=== PATIENT | female | born 2000 | race Caucasian/White ===

== ENCOUNTER 2024-03-04 20:05 | Emergency (ER) | payer OTHER, SELFPAY ==
[2024-03-04 20:07] VITALS: BP 160/108
[2024-03-04 20:19] LABS: % Basophils 0.2 % (0-2); % Eosinophils 0.3 % (0-6); % Immature Granulocytes 0.6 % (0-0.5); % Lymphocytes 25.6 % (20.5-51.1); % Monocytes 4.1 % (1.7-9.3); % Neutrophils 69.2 % (42.2-75.2); Absolute Lymphocytes 1.7 10^3/uL (1.2-3.4); Absolute Monocytes 0.3 10^3/uL (0.1-0.6); Absolute Neutrophils 4.6 10^3/uL (1.4-6.5); Hematocrit 43.5 % (37.0-47.0); Hemoglobin 14.7 g/dL (12.0-16.0); Mean Corp Hgb Conc. 33.8 g/dL (33.0-37.0); Mean Corpuscular Hgb 28.9 pg (27.0-31.0); Mean Corpuscular Volume 85.6 fL (81.0-99.0); Mean Platelet Volume 9.7 fL (7.4-10.4); Nucleated Red Blood Cells % 0 %; Platelet Count 245 10^3/uL (130-400); Red Blood Cell Count 5.08 10^6/uL (4.20-5.40); Red Cell Dist. Width 12.3 % (11.5-14.5); White Blood Cell Count 6.6 10^3/uL (4.8-10.8)
[2024-03-04 20:35] LABS: ALT (SGPT) 20 U/L (0-35); AST (SGOT) 29 U/L (14-36); Albumin 4.7 g/dl (3.5-5.0); Alkaline Phosphatase 72 U/L (38-126); Blood Urea Nitrogen 16 mg/dl (7-17); Calcium 9.7 mg/dl (8.4-10.2); Carbon Dioxide 25 mmol/L (22-30); Chloride 102 mmol/L (98-107); Glucose 142 mg/dl (70-99); Lipase 58 U/L (23-300); Potassium 4.4 mmol/L (3.5-5.1); Sodium 137 mmol/L (135-145); Total Bilirubin 0.7 mg/dl (0.2-1.3); Total Protein 7.5 g/dl (6.3-8.2); eGFR > 60.00
[2024-03-04 22:29] VITALS: BMI 26.4
[2024-03-04 22:34] VITALS: BP 112/85
--- NOTE | 2024-03-04 22:57 | ED.GENMED ---
History of Present Illness
General
Chief Complaint: Abdominal Pain
Source: patient
Time Seen by Provider: 03/04/24 22:23
History of Present Illness
History of Present Illness:
23-year-old female presents to the emergency room complaining of epigastric pain. Patient states about 5 PM she had a sudden onset of severe epigastric pain. It made her double over. She had some associated nausea. Pain did not radiate to the
back. It is mostly gone now though not completely. She denies any fever, chills, diarrhea or constipation. Last menstrual period was just a day or 2 ago. She denies any previous abdominal surgeries. She does take control. She has never
been .
Phy Exam
Physical Exam
Physical Exam:
General: Awake, Alert, Oriented X3. No acute distress.
Vitals: unremarkable
Head: Atraumatic
Eyes: Pupils equal, EOMI
Throat: Airway intact, no exudates
Neck: Trachea midline
Lungs: Clear and equal b/l
Heart: Regular rate, no murmurs
Abd: Soft, Nontender, No pulsatile mass
Neuro: Nonfocal
Skin: Warm, dry, no rash
Extremities: pulses equal b/l, no edema
Course
Orders/Labs/Results
Orders:
Orders
03/04/24 20:13
Complete Blood Count/With Diff Urgent
Comprehensive Metabolic Panel Urgent
Lactic Acid Urgent
Lipase Urgent
03/04/24 22:56
US Abdomen Complete/Upper Urgent
Comment:
Reason For Exam: epigastric pain
Abnormal Lab Results
03/04/24
20:13
Immature Gran % 0.6 H %
(0-0.5)
Glucose 142 H mg/dl
(70-99)
03/04/24 20:13
03/04/24 20:13
Vital Signs
Initial and Last Documented VS:
Initial Vital Signs
Temp Pulse Resp BP Pulse Ox
97.9 F 71 20 160/108 99
03/04/24 20:07 03/04/24 20:07 03/04/24 20:07 03/04/24 20:07 03/04/24 20:07
Last Documented Vital Signs
Temp Pulse Resp BP Pulse Ox
97.9 F 71 20 106/74 98
03/04/24 20:07 03/04/24 20:07 03/04/24 20:07 03/04/24 23:00 03/04/24 23:30
MDM/Problems Addressed
Differential Diagnosis Includes:
Pancreatitis, acute cholecystitis, biliary colic, gastroenteritis
MDM/Problems Addressed:
Patient has significant abdominal pain which has mostly resolved at the time my evaluation. Labs are reassuring. Ultrasound does not show any obvious stones or gallbladder wall thickening. However the overall presentation seems consistent with
biliary colic. Patient stable for discharge home recommend she follow-up with general surgery as an outpatient. Given contact information for Dr. Richards. Recommend low-fat diet.
*Radiology
Radiology exam reviewed: radiology read reviewed
*Pulse Oximetry
Patient hypoxic: no
*Critical Care Note
Total Time (30-74mins, 75-104mins- exclusive of procedures): Not Applicable
ED Attending Note
-
Portions of this chart may have been created with voice recognition software.� Occasional wrong word or��sound alike� substitutions may have occurred due to the inherent limitations of voice recognition software.
Discharge Plan
Departure
Patient Disposition: Home (Routine Discharge)
Date of Disposition: 03/05/24
Time of Disposition: 01:08
Patient with high blood pressure during this ER visit?: No
Condition: Good
Discharge Problem:
Acute abdominal pain, Biliary colic
Instructions: Low-fat diet, Abdominal Pain
Referrals:
Julia Samuels NP [Family Provider] -
Magen Keane MD [Active] -
Activity Restrictions/Additional Instructions:
I believe your abdominal pain is related to spasm of the gallbladder. Your blood work looks normal and your u/s shows no evidence of acute problems. You should follow up with Dr. Keane.
Interventions
Interventions:
*General Assessment Last Done: 03/04/24 20:07
*Neglect/Abuse Screening Last Done: 03/04/24 22:30
ED- Fall Risk Assessment Last Done: 03/04/24 22:30
*ED COVID-19 Vaccine History Last Done: 03/04/24 22:30
*Nursing Disposition Last Done: 03/05/24 01:14
JS-Xqovwm-Naikpthlmi Assessment Last Done: 03/04/24 22:30
Discharge Date and Time
Discharge Date/Time: 03/05/24 01:14
Print Language: WOLOF
[2024-03-04 23:00] VITALS: BP 106/74
== END 2024-03-05 01:14 | disposition home or self-care (01) ==
LOC: EMR 20:05
PROVIDERS: Emergency Medicine; EMERGENCY PHYSICIAN Emergency Medicine; FAMILY PHYSICIAN Nurse Practitioner Adult Health
DX: R10.13 Epigastric pain (principal); R11.0 Nausea; K80.50 Calculus of bile duct without cholangitis or cholecystitis without obstruction
CPT/HCPCS: 99284; 76700; 80053; 83605; 83690; 85025